=== PATIENT | female | born 1985 | race Caucasian/White ===

== ENCOUNTER 2016-05-02 13:00 | Inpatient (IN) | payer BC ==
[~2016-05-02] VITALS: Ht 160 cm; Wt 82.2 kg
[2016-05-02] VITALS (33 sets, daily range): BP systolic 111–179; BP diastolic 64–107; PULSE 68–112; TEMP 97.6–99.3
[2016-05-02] MEDS ORDERED: PRENATAL1 TA7 PO (13:29)
[2016-05-02 15:31] LABS: BASO # 0.1 (0.0-0.2); BASO % 0.4 % (0.0-2.0); EOS # 0.1 (0.0-0.7); EOS % 0.3 % (0-4.0); GRAN # 15.2 (1.4-6.5); GRAN % 80.3 % (42.2-75.2); HEMATOCRIT 38.8 % (37.0-47.0); HEMOGLOBIN 13.5 g/dl (12.5-16.0); LYMPH % 10.7 % (20.0-51.0); MEAN CELL VOLUME 85 fl (80.0-100.0); MEAN CORPUSCULAR HEMOGLOBIN 30 pg (27.0-31.0); MEAN CORPUSCULAR HGB CONC 35 g/dl (33.0-37.0); MONO # 1.4 (0.1-0.6); MONO % 7.2 % (1.7-9.3); PLATELET COUNT 190 K/mm3 (130-400); RED BLOOD COUNT 4.57 M/mm3 (4.10-5.30); REDCELL DISTRIBUTION WIDTH-CV 13.2 % (11.5-14.5)
[2016-05-02 15:49] LABS: ADJUSTED CALCIUM 9.6 mg/dL (8.4-10.2); ALBUMIN 3.5 gm/dL (3.5-5.0); BILIRUBIN,TOTAL 0.7 mg/dL (0.0-1.0); CALCIUM 9.2 mg/dL (8.4-10.2); CREATININE, serum 0.55 mg/dL (0.52-1.25); POTASSIUM 3.8 mmol/L (3.4-5.0); TOTAL PROTEIN 6.8 gm/dL (6.4-8.2)
[2016-05-03] VITALS (31 sets, daily range): BP systolic 109–166; BP diastolic 68–96; PULSE 70–116; TEMP 97.4–98.4
[2016-05-04 03:30] VITALS: BP 102/61; PULSE 78; TEMP 97.6
[2016-05-04 07:05] VITALS: BP 117/76; PULSE 94; TEMP 97.5
[2016-05-04 07:28] LABS: HEMATOCRIT 33.7 % (37.0-47.0); HEMOGLOBIN 11.3 g/dl (12.5-16.0)
[2016-05-04] MEDS ORDERED: IBU600 MG PO (10:12)
[2016-05-04] MEDS ORDERED: PERCOCET 325 MG1 TA2 PO (10:12)
== END 2016-05-04 11:50 | disposition home or self-care (01) | DRG 774 ==
LOC: LDRO 13:00 → LDR 13:05 → LDRO 14:41 → OB 14:41 → LDR 14:41 → OB 05-03 07:20 → LDRO 05-09 15:21
PROVIDERS: Obstetrics & Gynecology
PROC: 10D07Z6 Extraction of Products of Conception, Vacuum, Via Natural or Artificial Opening (ICD-10-PCS; principal; 2016-05-03)
PROC: 0KQM0ZZ Repair Perineum Muscle, Open Approach (ICD-10-PCS; 2016-05-03)
DX: O14.03 Mild to moderate pre-eclampsia, third trimester (principal); O36.0130 Maternal care for anti-D [Rh] antibodies, third trimester, not applicable or unspecified; O76 Abnormality in fetal heart rate and rhythm complicating labor and delivery; O69.81X0 Labor and delivery complicated by cord around neck, without compression, not applicable or unspecified; O70.1 Second degree perineal laceration during delivery; O77.0 Labor and delivery complicated by meconium in amniotic fluid; Z3A.39 39 weeks gestation of pregnancy; Z37.0 Single live birth
CPT/HCPCS: J2590; J2790; J7120

== ENCOUNTER → 2016-05-22 | Outpatient (CLI) | payer BC ==
[~2016-05-22] MED LIST: IBU600 MG PO; PERCOCET 325 MG1 TA2 PO; PRENATAL1 TA7 PO
== END ==
LOC: OLC 14:50
DX: Z39.1 Encounter for care and examination of lactating mother (principal); Z71.89 Other specified counseling

== ENCOUNTER → 2016-08-14 | Outpatient (REF) | LOC: WSOH 08:31 | DX: Z00.00 Encounter for general adult medical examination without abnormal findings (principal) ==

== ENCOUNTER 2023-05-04 15:37 | Emergency (ER) | payer BC ==
[~2023-05-04] VITALS: Ht 160 cm; Wt 75.0 kg
[2023-05-04 15:43] VITALS: TEMP 98.4
[2023-05-04 16:50] LABS: HEMOGLOBIN 12.2 g/dl (12.5-16.0); MEAN CELL VOLUME 85 fl (80.0-100.0); MEAN CORPUSCULAR HEMOGLOBIN 30 pg (27-31); MEAN CORPUSCULAR HGB CONC 36 g/dl (33.0-37.0); MEAN PLATELET VOLUME 9.7 fl (7.4-10.4); PLATELET COUNT 184 K/mm3 (130-400); RED BLOOD COUNT 4.04 M/mm3 (4.10-5.30); REDCELL DISTRIBUTION WIDTH-CV 13.2 % (11.5-14.5)
[2023-05-04 16:53] LABS: HEMATOCRIT 34.4 % (37.0-47.0)
[2023-05-04 17:10] LABS: ALBUMIN 2.8 gm/dL (3.5-5.0); BILIRUBIN,TOTAL 0.2 mg/dL (0.2-1.2); CALCIUM 8.8 mg/dL (8.4-10.2); CREATININE, serum 0.62 mg/dL (0.57-1.11); POTASSIUM 3.5 mmol/L (3.5-4.5); TOTAL PROTEIN 6.2 gm/dL (6.2-8.1)
[2023-05-04] MEDS ORDERED: Albuterol/Ipratropium 3 MG-0.5 MG/3 ML Neb Soln IH ONE (17:30)
[2023-05-04 17:35] LABS: BAND 15 % (0-10); LYMPHOCYTE 24 % (20.0-51.0); METAMYELOCYTE 1 % (0-0); NEUTROPHILS 56 % (42.0-75.2)
[2023-05-04 17:36] LABS: PLATELET ESTIMATE NORMAL (NORMAL)
[2023-05-04 17:50] LABS: COLLECTION METHOD CLEAN CATCH
[2023-05-04 18:02] LABS: URINE APPEARANCE Turbid (CLEAR/HAZY); URINE COLOR Yellow (YELLOW)
[2023-05-04 18:04] LABS: URINE GLUCOSE Negative (NEGATIVE); URINE PROTEIN(semi-quant) TRACE (NEGATIVE)
[2023-05-04 18:05] LABS: AMORPHOUS CRYSTAL Present (NOT PRESENT); URINE BLOOD Negative (NEGATIVE); URINE CALCIUM OXALATE CRYSTAL Present (NOT PRESENT); URINE KETONE 1+ (NEGATIVE); URINE NITRATE Negative (NEGATIVE); URINE RBC 0-2 /hpf (0-2)
[2023-05-04] MEDS ORDERED: LORazepam 1 MG TAB PO ONE (18:30)
--- NOTE | 2023-05-04 18:40 | NUR ---
1840 EFM ON FOR 20 MINUTE STRIP. BABY VERY ACTIVE. FHT BASELINE 150'S
[2023-05-04 19:22] VITALS: BP 128/86; PULSE 96
== END 2023-05-04 19:26 | disposition home or self-care (01) ==
LOC: COL.ER 15:37
PROVIDERS: Physician Assistant
DX: O98.512 Other viral diseases complicating pregnancy, second trimester (principal); U07.1 COVID-19; O26.892 Other specified pregnancy related conditions, second trimester; R06.02 Shortness of breath; R09.81 Nasal congestion; O99.342 Other mental disorders complicating pregnancy, second trimester; F41.9 Anxiety disorder, unspecified; Z3A.24 24 weeks gestation of pregnancy; Z73.0 Burn-out; Z28.310 Unvaccinated for COVID-19; Z79.899 Other long term (current) drug therapy

== ENCOUNTER 2023-08-09 10:22 | Inpatient (IN) | payer BC ==
[~2023-08-09] VITALS: Ht 160 cm; Wt 84.1 kg
[2023-08-09] VITALS (26 sets, daily range): BP systolic 106–149; BP diastolic 60–101; PULSE 68–116; TEMP 98–98.4
[2023-08-09] MEDS ORDERED: LR 1,000 ML IV SCH (11:00)
[2023-08-09] MEDS ORDERED: LEXAPRO20 MG (11:14)
[2023-08-09] MEDS ORDERED: GLUCOPHAGE500 MG/TAB PO (11:15)
[2023-08-09 11:38] LABS: HEMATOCRIT 39.2 % (37.0-47.0); HEMOGLOBIN 13.4 g/dl (12.5-16.0); MEAN CELL VOLUME 86 fl (80.0-100.0); MEAN CORPUSCULAR HEMOGLOBIN 29 pg (27-31); MEAN CORPUSCULAR HGB CONC 34 g/dl (33.0-37.0); MEAN PLATELET VOLUME 10.7 fl (7.4-10.4); PLATELET COUNT 195 K/mm3 (130-400); RED BLOOD COUNT 4.56 M/mm3 (4.10-5.30)
[2023-08-09] MEDS ORDERED: LR & Oxytocin 500 ML IV SCH (11:45)
[2023-08-09 12:01] LABS: ALBUMIN 2.6 g/dL (3.5-5.0); BILIRUBIN,TOTAL 0.3 mg/dL (0.2-1.2); CALCIUM 9.5 mg/dL (8.4-10.2); CREATININE, serum 0.69 mg/dL (0.57-1.11); TOTAL PROTEIN 6.4 g/dl (6.2-8.1)
--- NOTE | 2023-08-09 12:11 | NUR ---
1030 PATIENT HERE WITH COMPLAINTS OF HAVING A GUSH OF FLUID THIS AM AT AROUND 330 BUT WENT BACK TO BED. PATIENT STATES SHE IS HAVING OCCASIONAL CONTRACTIONS ABOUT 10 MIN APART. EFMM ON FHT 130 BABY VEREY ACTIVE. SVE FT/80/-3 LARGE AMOUNT CLEAR FLUID NOTED WITH SVE. DR GREEN CALLED WITH ALL ABOVE INFORMATION AND ORDERS GIVEN TO ADMIT.
[2023-08-09 12:22] LABS: BAND 4 % (0-10); LYMPHOCYTE 15 % (20.0-51.0); NEUTROPHILS 75 % (42.0-75.2); NUCLEATED RED BLOOD CELL 1 (0-6); PLATELET ESTIMATE NORMAL (NORMAL)
[2023-08-09] MEDS ORDERED: ROPivacaine PF 0.2% 200 ML IV ONE (13:23)
--- NOTE | 2023-08-09 13:34 | NUR ---
1310 IVF WIDE OPEN FOR A 800 CC BOLUS. LIAS NEIL AT BEDSIDE FOR EPIDURAL PLACEMENT. PATIENT TOLERATES WELL. SEE PAEDIATRIC SURGEON NOTES FOR QUESTIONS.
--- NOTE | 2023-08-09 15:22 | NUR ---
1510: ON UNIT. SVE COMPLETE/0. PT REPORTS PRESSURE. BRI SUTTON'Jacques. ALL APPROPRIATE STAFF NOTIFIED. ROOM PREPARED FOR DELIVERY. PT COACHED ON PUSHING EFFORTS. 1522: OF VIABLE FEMALE INFANT PER . STRONG CRY NOTED. UPON PULSATION CORD CLAMPED X2 AND CUT BY ES SCHUMACHERSTATIONARY EQUIPMENT MECHANIC NURSE PER PARENTS REQUEST. PLACED ON MATERNAL ABODMEN. CARE OF ASSUMED BY ES HAYES. MATERNAL VITAL SIGNS STABLE. EPIDURAL WORKING WELL, PT DENIES FEELING PAIN. 1525: OF INTACT PLACENTA PER . PITOCIN BOLUS INFUSING PER PROTOCOL. LOCHIA WNL. FUNDUS FIRM AT UMBILICUS WITH MASSAGE. BEGINS REPAIR OF SECOND DEGREE LACERATION. PT TOLERATING PROCEDURE WELL. WILL CONTINUE WITH PP CARES PER PROTOCOL.
[2023-08-09] MEDS ORDERED: Loratadine 10 MG TAB PO PRN (15:45)
[2023-08-09] MEDS ORDERED: Magnes Hydrox (MOM) 80 MG/ML 30 ML CUP PO PRN (15:45)
[2023-08-09] MEDS ORDERED: Sennosides/Docusate 8.6-50 MG TAB PO SCH (17:00)
[2023-08-09] MEDS ORDERED: oxyCODONE 5 MG TAB PO PRN (17:15)
[2023-08-09] MEDS ORDERED: Measles/Mumps/Rubella Virus Vaccine Live w Diluent 0.5 ML VIAL SQ SCH (17:15)
[2023-08-09] MEDS ORDERED: Naloxone 0.4 MG/ML VIAL IV PRN (17:15)
[2023-08-09] MEDS ORDERED: Phenylephrine/Mineral Oil/Petrolatum 57 GM TUBE RC PRN (17:15)
[2023-08-09] MEDS ORDERED: Acetaminophen 500 MG TAB PO SCH (17:15)
[2023-08-09] MEDS ORDERED: Mag/Al Hydrox/Simeth Susp 30 ML CUP PO PRN (17:15)
[2023-08-09] MEDS ORDERED: Ibuprofen 800 MG TAB PO SCH (17:15)
[2023-08-09] MEDS ORDERED: Witch Hazel 50% Pads Bulk TUB TP PRN (17:15)
[2023-08-09] MEDS ORDERED: Rho(D) Imm Globulin 1,500 UNITS (300 MCG)/2 ML SYRINGE IV\\IM SCH (19:00)
[2023-08-09] MEDS ORDERED: traZODone 50 MG TAB PO PRN (21:00)
[2023-08-10 04:24] VITALS: BP 104/61; PULSE 78; TEMP 97.9
[2023-08-10] MEDS ORDERED: MOTRIN 800800 MG/TAB PO (07:55)
[2023-08-10 10:40] VITALS: BP 130/80; PULSE 87; TEMP 97.5
--- NOTE | 2023-08-10 13:11 | NUR ---
Data: Bellstand Attendant visit offered during Bellstand Attendant rounds. Patient declined. Assessment: Patient declined. Plan of Care: Bellstand Attendant congratulated Patient on new baby. Chaplains will remain available as requested while Patient is admitted to this hospital.
== END 2023-08-10 17:45 | disposition home or self-care (01) | DRG 560 ==
LOC: LDRO 10:22 → LDR 10:56 → OB 18:45
PROVIDERS: ADMIT Obstetrics & Gynecology
PROC: 10E0XZZ Delivery of Products of Conception, External Approach (ICD-10-PCS; principal; 2023-08-09)
PROC: 0KQM0ZZ Repair Perineum Muscle, Open Approach (ICD-10-PCS; 2023-08-09)
PROC: 3E033VJ Introduction of Other Hormone into Peripheral Vein, Percutaneous Approach (ICD-10-PCS; 2023-08-09)
DX: O24.429 Gestational diabetes mellitus in childbirth, unspecified control (principal); Z37.0 Single live birth; O70.1 Second degree perineal laceration during delivery; O69.81X0 Labor and delivery complicated by cord around neck, without compression, not applicable or unspecified; Z3A.38 38 weeks gestation of pregnancy
CPT/HCPCS: J2590; J2791; J2795; J7120